=== PATIENT | male | born 1995 | race Hispanic/Latino ===

== ENCOUNTER 2025-06-27 12:58 | Emergency (ER) | payer SELFPAY ==
[2025-06-27 13:58] LABS: Influenza A Ag Negative; Influenza B Ag Negative; SARS-CoV-2 Antigen Rapid Res Negative (Negative)
--- NOTE | 2025-06-27 14:56 | ER ---
Nurse's Notes [facility] Name: Greg Campa Age: 29 yrs Sex: Male : 1995 Arrival Date: 06/27/2025 Time: 12:58 Bed 12 Private MD: Diagnosis: Acute tonsillitis, unspecified Presentation: 06/27 13:15 Chief complaint: Patient states: sore throat "8/10" with white spots on throat, fever, me1 chills, body aches for 2 days. Coronavirus screen: Vaccine status: Patient reports being unvaccinated. Ebola Screen: No symptoms or risks identified at this time. Initial Sepsis Screen: Does the patient meet any 2 criteria? HR > 90 bpm. Does the patient have a suspected source of infection? No. Patient's initial sepsis screen is negative. Risk Assessment: Do you want to hurt yourself or someone else? Patient reports no desire to harm self or others. Onset of symptoms was June 25, 2025. 13:15 Method Of Arrival: Ambulatory az1 13:15 Acuity: LILLY 4 me1 Historical: - Allergies: 13:16 No Known Allergies; me1 - Home Meds: 13:16 None [Active]; me1 - PMHx: 13:16 None; me1 - PSHx: 13:16 Appendectomy; me1 - Immunization history:: Adult Immunizations up to date. - Infectious Disease History:: Denies. - Social history:: Smoking status: Patient reports the use of cigarette tobacco products, smokes one-half pack cigarettes per day, Reported history of juuling and/or vaping. Assessment: 15:00 General: Appears in no apparent distress. Behavior is calm, cooperative, appropriate rg5 for age. Pain: Complains of pain in soft palate, left buccal mucosa and right buccal mucosa Quality of pain is described as aching. Neuro: Level of Consciousness is awake, alert, obeys commands, Oriented to person, place, time, situation, Appropriate for age. Cardiovascular: Denies diaphoresis, Patient's skin is warm and dry. Respiratory: Airway is patent Respiratory effort is even, unlabored, Breath sounds are clear. Vital Signs: 13:15 BP 148 / 100; Pulse 106; Resp 18; Temp 98.7; Pulse Ox 100% ; Weight 99.79 kg; Height 5 me1 ft. 5 in. ; Pain 8/10; 15:00 BP 135 / 88; Pulse 98; Resp 18; Temp 98.3; Pulse Ox 100% ; rg5 13:15 Body Mass Index 36.61 (99.79 kg, 165.1 cm) me1 13:15 Pain Scale: [facility] ED Course: 13:07 Patient arrived in ED. im 13:07 Tomás Cavazos FNP-C [facility]. dr5 13:07 Ehsan Gong MD is Attending Physician. dr5 13:16 Triage completed. me1 13:16 Arm band placed on Patient placed in waiting room. me1 14:56 Griffin Hernandez, RN is Primary Nurse. rg5 15:00 Patient did not have IV access during this emergency room visit. rg5 Administered Medications: 15:07 Drug: Dexamethasone IM 10 mg IM once Route: IM; Site: right deltoid; rg5 15:15 Follow up: Response: No adverse reaction; Pain is decreased rg5 Medication: 15:00 VIS not applicable for this client. rg5 Outcome: 14:55 Discharge ordered by . dr5 15:00 Discharged to home ambulatory, rg5 15:00 Condition: stable 15:00 Discharge instructions given to patient, Instructed on discharge instructions, Demonstrated understanding of instructions, Prescriptions given X 2, 15:17 Patient left the ED. rg5 Signatures: Christelle Munoz Michelle, RN RN me1 Griffin Hernandez, RN RN rg5 Tomás Cavazos FNP-C SALES OPERATIONS ANALYST-Cdr5 Corrections: (The following items were deleted from the chart) 13:17 13:16 PMHx: Unable to Obtain; [place] [id number]
[2025-06-27 17:25] VITALS: O2SAT 100
[2025-06-27 17:26] VITALS: BP 135/88; TEMP 98.3
--- NOTE | 2025-06-28 15:17 | EDPHYS ---
Physician Documentation [facility] Name: Greg Campa Age: 29 yrs Sex: Male : 1995 Arrival Date: 06/27/2025 Time: 12:58 Bed 12 Private MD: ED Physician Ehsan Gong HPI: 06/27 16:46 This 29 yrs old Male presents to ER via Ambulatory with complaints of Sore dr5 Throat, Fever. 16:46 Onset: The symptoms/episode began/occurred 2 day(s) ago. Patient is a 29-year-old male dr5 with no past med history coming in with sore throat and subjective fevers at home for the past 3 days. Patient reports mild cough. Patient denies sick contacts.. Historical: - Allergies: 13:16 No Known Allergies; me1 - Home Meds: 13:16 None [Active]; me1 - PMHx: 13:16 None; me1 - PSHx: 13:16 Appendectomy; me1 - Immunization history:: Adult Immunizations up to date. - Infectious Disease History:: Denies. - Social history:: Smoking status: Patient reports the use of cigarette tobacco products, smokes one-half pack cigarettes per day, Reported history of juuling and/or vaping. ROS: 16:46 Constitutional: as per hpi dr5 Exam: 16:46 Constitutional: This is a well developed, well nourished patient who is awake, alert, dr5 and in no acute distress. Head/Face: Normocephalic, atraumatic. Eyes: Pupils equal round and reactive to light, extra-ocular motions intact. Lids and lashes normal. Conjunctiva and sclera are non-icteric and not injected. Cornea within normal limits. Periorbital areas with no swelling, redness, or edema. Neck: Trachea midline, no thyromegaly or masses palpated, and no cervical lymphadenopathy. Supple, full range of motion without nuchal rigidity, or vertebral point tenderness. No Meningismus. Chest/axilla: Normal chest wall appearance and motion. Nontender with no deformity. No lesions are appreciated. Cardiovascular: Regular rate and rhythm with a normal S1 and S2. Normal PMI, no JVD. No pulse deficits. Respiratory: Lungs have equal breath sounds bilaterally, clear to auscultation. No rales, rhonchi or wheezes noted. No increased work of breathing, no retractions or nasal flaring. Back: No spinal tenderness. No costovertebral tenderness. Full range of motion. Skin: Warm, dry with normal turgor. Normal color with no rashes, no lesions, and no evidence of cellulitis. MS/ Extremity: Pulses equal, no cyanosis. Neurovascular intact. Full, normal range of motion. Neuro: Awake and alert, GCS 15, oriented to person, place, time, and situation. Cranial nerves II-XII grossly intact. Motor strength 5/5 in all extremities. Sensory grossly intact. Cerebellar exam normal. Normal gait. 16:46 ENT: External ear(s): are unremarkable, Ear canal(s): are normal, no acute changes, TM's: are normal, no acute changes, Nose: is normal, no acute changes, Mouth: is normal, no acute changes, Posterior pharynx: Airway: normal, no evidence of obstruction, Tonsils: bilaterally enlarged, with exudate, Uvula: normal, midline, exudate, that is moderate, 16:46 Abdomen/GI: Inspection: abdomen appears normal, Bowel sounds: normal, active, Palpation: abdomen is soft and non-tender, soft, Vital Signs: 13:15 BP 148 / 100; Pulse 106; Resp 18; Temp 98.7; Pulse Ox 100% ; Weight 99.79 kg; Height 5 me1 ft. 5 in. ; Pain 8/10; 15:00 BP 135 / 88; Pulse 98; Resp 18; Temp 98.3; Pulse Ox 100% ; rg5 13:15 Body Mass Index 36.61 (99.79 kg, 165.1 cm) me1 13:15 Pain Scale: Adult me1 MDM: 13:07 Medical Screening Exam initiated dr5 16:46 Differential diagnosis: Strep, COVID, flu, tonsillitis. Data reviewed: vital signs, dr5 nurses notes, lab test result(s), Flu: negative Strep negative, COVID-negative. Consideration of Admission/Observation Escalation of care including admission/observation considered. Escalation considered patient had fever with enlarged tonsils obstructing airway. I considered the following discharge prescriptions or medication management in the emergency department I discussed and recommended Over The Counter medications, Medications were administered in the Emergency Department. See MAR. Care significantly affected by the following Social Determinants of Health: Poor access to healthcare and/or lack of insurance, Poor access to transportation, Problems related to employment. Counseling: I had a detailed discussion with the patient and/or guardian regarding the historical points, exam findings, and any diagnostic results supporting the discharge/admit diagnosis, the presence of at least one elevated blood pressure reading (>120/80) during this emergency department visit, lab results, the need for outpatient follow up, for definitive care, an ENT specialist, a family practitioner, to return to the emergency department if symptoms worsen or persist or if there are any questions or concerns that arise at home. Medication response: Dexamethasone. Response to treatment: the patient's symptoms have mildly improved after treatment. Special discussion: I discussed with the patient/guardian in detail that at this point there is no indication for admission to the hospital. It is understood, however, that if the symptoms persist or worsen the patient needs to return immediately for re-evaluation. Based on the history and exam findings, there is no indication for further emergent testing or inpatient evaluation. I discussed with the patient/guardian the need to see the ENT specialist for further evaluation of the symptoms. I discussed with the patient/guardian the need to see the primary care provider for further evaluation of the symptoms. ED course: Tonsillitis noted on exam. Will have patient follow-up primary care doctor. Amoxicillin prescribed. Recommend increase hydration. Alternate Tylenol Motrin as needed. All questions answered. Strict ER precautions given. 06/27 13:12 Order name: COVID-19 Ag + Flu A+B Ag; Complete Time: 14:16 dr5 06/27 13:12 Order name: Group A Streptococcus Rapid; Complete Time: 14:16 [facility] 06/27 14:00 Order name: Throat Culture EDMS Administered Medications: 15:07 Drug: Dexamethasone IM 10 mg IM once Route: IM; Site: right deltoid; rg5 15:15 Follow up: Response: No adverse reaction; Pain is decreased rg5 Disposition Summary: 06/27/25 14:55 Discharge Ordered Notes: Location: Home dr5 Condition: Stable dr5 Diagnosis - Acute tonsillitis, unspecified dr5 Followup: dr5 - With: Emergency Department - When: As needed - Reason: Worsening of condition Followup: dr5 - With: Private Physician - When: 1 - 2 days - Reason: Recheck today's complaints, Continuance of care, Re-evaluation by your physician Discharge Instructions: - Discharge Summary Sheet dr5 - Tonsillitis dr5 Forms: - Work release form rg5 - Medication Reconciliation Form dr5 - Antibiotic Education dr5 - Patient Portal Instructions dr5 - Leadership Thank You Letter dr5 Prescriptions: - Amoxicillin 500 mg Oral capsule - take 1 capsule ORAL route every 12 hours for 10 days; 20 tablet; Refills: 0, dr5 Product Selection Permitted - Medrol (Jose Antonio) 4 mg Oral Tablets, Dose Pack - take 1 tablet ORAL route as directed - follow package instructions; 1 packet; dr5 Refills: 0, Product Selection Permitted Signatures: Dispatcher [employer] EDMS Wanda Concepcion, RN RN me1 Griffin Hernandez, RN RN rg5 Tomás Cavazos, SAMPLE MAKER-C SAMPLE MAKER-Cdr5 Corrections: (The following items were deleted from the chart) 13:12 13:12 COVID-19 Ag + Flu A+B Ag+I.LAB.BRZ ordered. EDMS EDMS 13:12 13:12 Group A Streptococcus Rapid Sc+I.LAB.BRZ ordered. EDMS EDMS 13:17 13:16 PMHx: Unable to Obtain; me1 me1
== END 2025-06-27 15:17 | disposition home or self-care (01) ==
LOC: ER 12:58
DX: J03.90 Acute tonsillitis, unspecified (principal); Z11.52 Encounter for screening for COVID-19
CPT/HCPCS: 36415; 87070; 87428; 96372; 99284; J1100